=== PATIENT | female | born 1950 | race Caucasian/White ===

== ENCOUNTER 2019-01-16 03:44 | Inpatient (IN) ==
[2019-01-16] MEDS ORDERED: KEFZOL 1 GM/D5W 1 GM/50 ML IVPB ONE (06:13)
[2019-01-16] MEDS ORDERED: LR 1,000 ML ONE ×3 (06:14→13:18)
[2019-01-16] MEDS ORDERED: STERILE WATER INJ. ONE (06:34)
[2019-01-16] MEDS ORDERED: QUELICIN (DOSE) ONE (06:34)
[2019-01-16] MEDS ORDERED: XYLOCAINE-MPF 2% ONE (06:34)
[2019-01-16] MEDS ORDERED: DIPRIVAN 1% ONE (06:35)
[2019-01-16] MEDS ORDERED: NORCURON ONE ×2 (06:35→10:17)
[2019-01-16] MEDS ORDERED: MARCAINE 0.5% ONE (06:45)
[2019-01-16 06:57] LABS: AGAP 10; BUN 11 mg/dL (8-22); CALCIUM 8.4 mg/dL (8.8-10.2); CHLORIDE 99 mmol/L (98-107); COSMO 272; CREATININE 0.8 mg/dL (0.5-0.9); ESTIMATED GFR > 60; GLUCOSE 104 mg/dL (70-104); POTASSIUM 3.9 mmol/L (3.5-5.1); SODIUM 136 mmol/L (136-145); TCO2 27 mmol/L (25-35)
[2019-01-16] MEDS ORDERED: MARCAINE 0.25% ONE (07:06)
[2019-01-16] MEDS ORDERED: EXPAREL 1.3% ONE (07:06)
[2019-01-16] MEDS ORDERED: ZOFRAN ONE (08:26)
[2019-01-16] MEDS ORDERED: DECADRON ONE (08:26)
[2019-01-16] MEDS ORDERED: OFIRMEV 1000 MG/ISOTONIC SOLN 1,000 MG/100 ML BOTTLE ONE (08:54)
[2019-01-16] MEDS ORDERED: FENTANYL ONE (09:14)
[2019-01-16 09:19] LABS: URINE SOURCE CATH
[2019-01-16 09:28] LABS: BILIRUBIN URINE NEGATIVE (NEGATIVE); BLOOD URINE NEGATIVE (NEGATIVE); COLOR YELLOW; GLUCOSE URINE NEGATIVE (NEGATIVE); KETONE URINE NEGATIVE (NEGATIVE); LEUKOCYTES URINE NEGATIVE (NEGATIVE); NITRITE URINE NEGATIVE (NEGATIVE); PROTEIN URINE TRACE mg/dL (NEGATIVE); TURBIDITY URINE CLEAR (CLEAR); UROBILINOGEN URINE NORMAL (NORMAL)
[2019-01-16 09:29] LABS: UR EPITHELIAL CELLS <10 /HPF (<10); URINE BACTERIA NEGATIVE /HPF; URINE RBC <10 /HPF (<10); URINE WBC <10 /HPF (<10)
[2019-01-16] MEDS ORDERED: ROBINUL ONE (12:26)
[2019-01-16] MEDS ORDERED: NEOSTIGMINE ONE (12:56)
[2019-01-16] MEDS: DILAUDID ONE ×2 (13:27→13:51)
[2019-01-16] MEDS ORDERED: TYLENOL PO PRN (14:45)
[2019-01-16] MEDS: KEFZOL 1 GM/D5W 1 GM/50 ML IVPB IV SCH ×2 (15:41→21:57)
[2019-01-16] MEDS: LR 1,000 ML IV SCH (16:17)
[2019-01-16] MEDS: MORPHINE IV PRN ×2 (17:14→19:48)
[2019-01-16] MEDS: NORCO-7.5 PO PRN ×2 (17:56→23:33)
[2019-01-16] MEDS ORDERED: VITAMIN D PO SCH (18:00)
[2019-01-16] MEDS: ROBAXIN PO SCH (18:03)
[2019-01-16] MEDS: WELLBUTRIN PO SCH (21:36)
[2019-01-16] MEDS: COLACE PO SCH (21:36)
[2019-01-16] MEDS: PERIDEX MT SCH (21:37)
[2019-01-16] MEDS: ZOFRAN IV PRN (23:51)
[2019-01-17] MEDS: LR 1,000 ML IV SCH ×3 (00:25→23:01)
[2019-01-17] MEDS: KEFZOL 1 GM/D5W 1 GM/50 ML IVPB IV SCH ×2 (03:32→06:27)
[2019-01-17] MEDS: NORCO-7.5 PO PRN ×4 (04:59→17:13)
[2019-01-17 06:20] LABS: HEMATOCRIT 31.9 % (37.0-47.0); HEMOGLOBIN 10.4 g/dL (12.0-16.0); MCH 30.8 PG (27-31); MCHC 32.6 g/dL (33-37); MCV 94.4 FL (81-99); MPV 9.5 FL (7.4-10.4); RBC 3.38 XMIL (4.2-5.4); RDW 12.1 % (11.5-14.5); WBC 10.94 X1000 (4.8-10.8)
[2019-01-17 06:57] LABS: CALCIUM 8.7 mg/dL (8.8-10.2); CREATININE 1.3 mg/dL (0.5-0.9); POTASSIUM 4.6 mmol/L (3.5-5.1)
[2019-01-17] MEDS ORDERED: MYLICON PO PRN (07:19)
--- NOTE | 2019-01-17 07:49 | PROGRESS NOTE ---
DATE: 01/17/2019 SUBJECTIVE: Postoperative day 1 from left robotic-assisted laparoscopic nephroureterectomy with lysis of adhesions. The patient states she had an overall good night. Her catheter has drained approximately 875 mL. However, this morning she says that she is having pain with the catheter, as well as pain in her upper abdomen. The pain seems to be localized to her right upper quadrant. She denies any nausea or vomiting. She denies any chest pain or shortness of breath. However, she feels like it is hard for her to catch her breath due to the right upper quadrant pain. She denies any fevers or chills. Her SHEELA drain has drained approximately 148 mL. Bladder scan was preformed this morning with 0 cc. OBJECTIVE: Vital Signs: Temperature 98.2, heart rate 78, blood pressure 118/74, oxygen saturation 100%. General: Mild distress. Alert and oriented x3. Respiratory: Good respiratory effort without audible wheeze or rales. Cardiovascular: Regular rate and rhythm. Abdomen: Soft, nontender, nondistended. Incisions are well healed with Covidien skin glue present. : No suprapubic tenderness. No CVA tenderness. Urethral catheter in place, draining clear-yellow urine. LABORATORY DATA: White blood cell count 10.9, hemoglobin 10.4, hematocrit 31.9, platelets 211,000. Sodium 136, potassium 4.6, chloride 98, bicarb 27, BUN 14, creatinine 1.3, glucose 102, calcium 8.7. ASSESSMENT AND PLAN: Ms. Galdamez is a 68-year-old who presents postoperatively after a left robotic-assisted laparoscopic nephroureterectomy yesterday. The patient overall seems to be doing okay. She does describe some upper right quadrant abdominal pain, which she associates with gassy pain as well as some bladder discomfort, and feels like she is having difficulty with catheter, and appears to be describing bladder spasm-type symptoms. Will plan for her to receive some bladder spasm medication with Ditropan 5 mg b.i.d. Will also give her simethicone to see this helps with gassy distention. I told her to get up out of bed and ambulate today as this will help to mobilize the air. Her labs are all within normal limits. Hematocrit is 31.9 from 40 several weeks ago, white blood cell count 10.9. Creatinine is increased up to 1.3. Will continue with her home medications. Encourage her to take oral intake as tolerated. Encourage her to remain hydrated with fluids. Continue oral pain medication. Will give her anticoagulation today. Will obtain a Nikita-Hallman creatinine, and will remove her Nikita-Hallman if output remains low and creatinine is low as well. Encouraged her to remain hydrated today, and will repeat labs in the morning. Will continue to monitor. cc: Manohar Terrazas MD [facility]
[2019-01-17] MEDS: ROBAXIN PO SCH ×3 (09:09→17:13)
[2019-01-17] MEDS: WELLBUTRIN PO SCH ×2 (09:09→21:41)
[2019-01-17] MEDS: COLACE PO SCH ×2 (09:09→21:41)
[2019-01-17] MEDS: ABILIFY PO SCH (09:10)
[2019-01-17] MEDS: PERIDEX MT SCH ×2 (09:10→21:41)
[2019-01-17] MEDS: DITROPAN PO SCH ×2 (09:10→21:42)
[2019-01-17] MEDS: LOVENOX SUBQ SCH (09:10)
[2019-01-17] MEDS: ZOFRAN IV PRN (09:22)
[2019-01-17 11:56] LABS: CREATININE BODY FLUID 1.2 mg/dL
[2019-01-17] MEDS: NORCO-10 PO PRN (21:41)
[2019-01-17] MEDS: MORPHINE IV PRN (23:04)
[2019-01-18] MEDS: NORCO-10 PO PRN ×3 (01:04→09:03)
[2019-01-18] MEDS: ZOFRAN IV PRN (05:21)
[2019-01-18 07:48] VITALS: BP 128/77
--- NOTE | 2019-01-18 08:42 | PROGRESS NOTE ---
DATE: 01/18/2019 SUBJECTIVE: Postop day 2 from left robotic assisted laparoscopic nephroureterectomy with lysis of adhesions. Patient has been doing well. Her pain is much better controlled today than yesterday. Her cath has been draining well. Nurses did say that overnight that they had to reposition the catheter to allow for improved drainage with approximately 600 mL draining from her bladder afterwards. She denies abdominal or flank pain today. She denies any nausea or vomiting and is tolerating p.o. intake. Was ambulatory yesterday and was up to the chair for most of the day yesterday. SHEELA drain only put out 30 mL. SHEELA creatinine was performed yesterday which was 1.2. OBJECTIVE: VITAL SIGNS: Temperature 98.2 degrees, heart rate 58, blood pressure 128/77, oxygen saturation 100% on room air. GENERAL: No acute distress. Resting comfortably in bed. Alert and oriented x3. RESPIRATORY: Good respiratory effort without audible wheezing or rales. ABDOMEN: Soft, nontender, nondistended. Abdominal incisions are well healed with Dermabond present. SHEELA drain in left lower quadrant with minimal serosanguineous drainage. GENITOURINARY: No suprapubic tenderness. No CVA tenderness. MUSCULOSKELETAL: Moving all extremities. LABORATORY DATA: SHEELA creatinine 1.2. ASSESSMENT AND PLAN: Ms. Galdamez is a 68-year-old who is postoperative after a left robotic assisted laparoscopic nephroureterectomy and lysis of adhesions. The patient has been doing well. Her pain is much better controlled today. Her catheter is draining well with 1450 cc recorded yesterday. She denies any fevers or chills. She is tolerating p.o. intake. Vital signs have all been stable. Encouraged her to continue to be ambulatory. Continue with Lovenox for DVT prophylaxis. Continue to limit IV pain medication and continue with p.o. pain medication. Patient continues to describe occasional spasms of the bladder which should improve on the Ditropan. We will increase her to t.i.d. of Ditropan. Continue on Colace and we will add Senna. Educated her on management of the catheter. We will plan to DC her SHEELA drain due to low output and low SHEELA creatinine. If patient does well, we will consider discharge later today. cc: Manohar Terrazas MD [id number]
[2019-01-18] MEDS: DITROPAN PO SCH (09:01)
[2019-01-18] MEDS: ROBAXIN PO SCH (09:01)
[2019-01-18] MEDS: WELLBUTRIN PO SCH (09:02)
[2019-01-18] MEDS: COLACE PO SCH (09:03)
[2019-01-18] MEDS: ABILIFY PO SCH (09:03)
[2019-01-18] MEDS: PERIDEX MT SCH (09:04)
[2019-01-18] MEDS: LOVENOX SUBQ SCH (09:04)
--- NOTE | 2019-01-18 14:47 | OPERATIVE NOTE ---
PROCEDURE DATE: 01/16/2019 PREOPERATIVE DIAGNOSIS: Left renal pelvis mass. POSTOPERATIVE DIAGNOSIS: Left renal pelvis mass. PROCEDURE PERFORMED: 1. Left robotic-assisted laparoscopic nephroureterectomy. 2. Lysis of adhesions greater than 2 hours. SURGEON: Manohar Terrazas MD. INCISING MACHINE OPERATOR: Sanjay Ricci MD. BLOOD LOSS: 200 mL. DRAINS: 1. Harshil drain. 2. A 16-Jordanian Vasquez catheter. SPECIMENS REMOVED: Left kidney and ureter. ANESTHESIA: 1. General. 2. Tap block by Dr. Goldstein. COMPLICATIONS: None. INDICATION FOR PROCEDURE: Ms. Galdamez is a 68 year-old, who presented to Urology Clinic for gross hematuria. The patient underwent cystoscopy and CT scan with CT scan showing what appears to be a left ureteropelvic junction mass. 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 The patient had an approximately 2.8 cm lesion. I talk with her regarding management including endoscopic management, chemotherapy, as well as percutaneous access and resection of mass, and left robotic assisted nephroureterectomy. Discussed risks, benefits, and alternatives of each procedure. After a thorough discussion, patient elected to proceed with surgical intervention and removal of the kidney and ureter itself. Discussed risks of bleeding, infection, damage to bowel and surrounding structures, worsening renal function, need for postoperative chemotherapy. After thorough discussion, patient elected to proceed. DESCRIPTION OF PROCEDURE: After informed consent was obtained, patient brought to the operating room, placed on the operating table in supine position. Patient received preoperative antibiotics and underwent endotracheal intubation. The patient then underwent a TAP block by Anesthesia, and then was positioned in a modified lateral decubitus position with left side up. The patient was padded and adhered to the bed with Velcro straps. The patient was tested at the extremes of rotation and no movement was seen. The patient was then prepped and draped in the usual sterile fashion. A preoperative time-out was performed with all parties in agreement, including anesthesia, surgical, nursing staff. At which point her abdomen was inspected with a small Pfannenstiel incision seen above her pubic bone. The patient was quite skinny. Each of the potential incision sites were seen, and then a Veress needle obtained. This inserted supraumbilical and went into the abdomen easily. This underwent a drop test with no evidence of any aspiration of blood or succus. Insufflation was started at a low and increased up to high, which allowed adequate insufflation of the abdomen. Each incision was then marked; 1 in the midline for the camera a 12 mm port, as well as an fast food sales assistant port just lateral to the umbilicus on the right side. Robotic ports were then obtained; 2 ports in the upper left abdomen, as well as 1 overlying the iliac. These were each placed under observation with a camera with no evidence of any trauma on passage. On inspection of the abdomen, a large amount of adhesions were seen both of the bowel to the lateral wall, as well as within the pelvis itself from a prior hysterectomy. These seemed to be far enough away from our port sites and a right lower quadrant port was inserted for later usage of the robot in the pelvic portion of our procedure. After all robotic ports were inserted, the robot was then docked and then using monopolar scissors and bipolar electrocautery began removing some of the adhesions. Multiple adhesions were seen within the pelvis which were dissected off. A small amount of small bowel was adhered, as well as the omentum. It went to the extent in the inferior pelvis and then began dissecting toward the kidney itself. A large amount of adhesions were seen near the kidney and spleen, which were dissected out with blunt and electrocautery. I was ultimately able to excise the white line of Toldt and remove the descending colon away from the kidney itself. This was reflected back as far as possible until the ureter was seen. I was able to dissect down onto the psoas muscle and the ureter was visualized, as well as the gonadal vein. This was carried up towards the renal hilum and the renal vein was then visualized on the left side. The patient had complex renal vasculature with 2 renal veins and 2 renal arteries. The initial renal vein was visualized, as well as an artery posterior to this. I was also able to see the branching point of the 2nd left renal vein. It is difficult to see the artery, but ultimately was able to visualize this, and each of the arteries were then taken with a vascular load of the stapler and then the veins were then taken subsequently. A small amount of backbleeding was seen, and another smaller artery was seen going into the upper pole of the kidney, which also required a vascular load. Once this was completed, I was able to dissect the upper pole, as well as the lateral attachments, and the kidney was completely free. The dissection of the ureter was then taken all the way down as far inferior in the pelvis as possible, and the kidney was free and mobile. Once this was performed, attention was then placed to performing ureteral resection. All instruments were removed and the robot was then side docked to allow adequate management of the distal ureter. Ureter was then carried down as inferior as possible. The gonadal was seen to cross over the ureter and required ligation using 2 clips. This was clipped inferior and distally, and cut in between, and the ureter was then dissected all the way into the pelvis itself. Crossing of the iliacs and a small amount of bleeding was seen near the infundibular ligament, which was controlled with electrocautery and clips. Ureter was carried all the way down to the bladder itself and dissected through the intramural ureter until a good cone of bladder was seen. This was then excised and a 3-0 V-LOC suture was then passed through for keeping the ureteral mucosa close and allow for adequate closure. Using needle power truck driver and our Prograsper, I was able to close the defect and slowly removed the ureter and close the defect, alternating back and forth. Good mucosal bites were seen. Ureter was then completely excised and inspected, which showed ureteral orifice and this end was then cauterized to ensure no transference of ureteral cells. Once this was completely removed, the remaining bladder defect was completely closed using the V-LOC suture. Once this was completed, a second layer of closure was performed and then the bladder was increased up to 240 mL with no drainage seen, at which point the bladder was then drained and our robotic instruments were removed and a Harshil drain was passed through the left lower quadrant and seen to pass into the pelvis itself. All ports were removed. The robot was undocked and then using a scalpel, an abdominal incision was then made supraumbilical and carried through the fascia and ultimately removed our specimen. The wound was then irrigated vigorously and then our fast food sales assistant port was then closed using a 0 Vicryl in a [id number] fashion. Once this completed, attention was placed to closing our midline incision using a PDS suture. This was performed in a running fashion, and good approximation of fascial tissues was obtained. The wound was then irrigated and then knot was buried with a Vicryl suture. Monocryls were then used to close the port sites in the midline incision. A nylon suture was used to adhere the drain to the right lower quadrant; this was placed to bulb suction. All incisions were then closed using Covidien skin glue. The patient's Vasquez catheter is adhered to the lower extremity with a StatLock. The patient was awoken and was taken to recovery in stable condition. The patient will be admitted overnight to the hospital for monitoring, and will be discharged with Vasquez catheter in the coming days. All lap and suture counts were correct. Dr. Ricci was present for all hedrick portions of the procedure, acting as my fast food sales assistant during the left robotic nephroureterectomy. cc: Manohar Terrazas MD [facility]
--- NOTE | 2019-01-22 20:03 | DISCHARGE SUMMARY ---
ADMISSION DATE: 01/16/2019 DISCHARGE DATE: 01/18/2019 PREOPERATIVE DIAGNOSES: Left renal pelvis urothelial carcinoma POSTOPERATIVE DIAGNOSIS: Left renal pelvis urothelial carcinoma PROCEDURES PREFORMED: 1. Left robotic-assisted laparoscopic nephroureterectomy. 2. Extensive lysis of adhesions. HISTORY: Ms. Galdamez is a 68 year-old, who presents to Urology Clinic with gross hematuria. She had undergone cystoscopy and CT scan. On CT scan, the patient was found to have a left renal pelvis mass. This was biopsied with the left ureteroscopy and found to be low- grade urothelial carcinoma. I talked with her regarding management of this, including surgery with removal of the kidney and ureter, endoscopic management both retrograde as well as antegrade as well as the role of chemotherapy. After discussion of all treatment options, the patient desired to undergo left nephroureterectomy. Discussed risks, benefits, and alternatives to surgery. DESCRIPTION OF HOSPITALIZATION: Ms. Galdamez presented on the morning of 01/16/2019 and was taken the operating room where she underwent a left robotic-assisted laparoscopic nephroureterectomy with extensive lysis of adhesions. The patient tolerated the procedure well. She was admitted postoperatively. Her Harshil drain output was minimal on postop day 1 and she had a SHEELA creatinine sent which returned at 1.2. The patient's labs showed stable hematocrit and hemoglobin at 32 and 10.4. Her white blood cell count 10.9. Creatinine was 1.3 from baseline of 0.8. The patient was having pain on postop day 1, which improved by postop day 2. She was able to be ambulatory, was tolerating a GI soft diet, had good urinary output from her catheter. Her SHEELA drain was removed. The patient was deemed appropriate for discharge and will return to clinic for removal of her catheter. DISCHARGE MEDICATIONS: 1. Imperial 10/325 mg. 2. Senna 8.6 mg b.i.d. 3. Colace 100 mg b.i.d. DIET: Regular DISCHARGE INSTRUCTIONS: The patient was educated to perform incentive spirometry and be ambulatory in the postop setting. The patient is encouraged to limit her pain medications and take stool softeners as necessary. She is urged to continue other home medications. She is given the phone number for the urology clinic and call if she develops fevers greater than 100.5, catheter stopped draining, inability to tolerate p.o. intake, persistent nausea and vomiting, and worsening abdominal distention. The patient is also encouraged to present to the emergency room if the symptoms persisted. FOLLOW-UP: The patient will return to clinic on 01/20/2019, for removal of Vasquez catheter. They will be called with pathology results when they return. cc: Manohar Terrazas MD [facility]
== END 2019-01-18 10:25 | disposition home or self-care (01) | DRG 658 ==
LOC: SURHOLD 03:44 → 4N 07:56
PROVIDERS: ADMIT Urology; ATTEND Urology